=== PATIENT | female | born 1985 | race Caucasian/White ===

== ENCOUNTER 2019-04-19 11:10 | Emergency (ER) | payer MEDICAID ==
[~2019-04-19] VITALS: Ht 152.4 cm; Wt 72.7 kg
[2019-04-19 11:17] VITALS: BP 110/69; Ht 152.4 cm; Wt 72.7 kg
[2019-04-19] MEDS ORDERED: TRILEPTAL300 MG PO (11:18)
[2019-04-19] MEDS ORDERED: ZANAFLEX2 M1 PO (11:19)
[2019-04-19] MEDS ORDERED: GABAPENTIN100 MG PO (11:19)
[2019-04-19] MEDS ORDERED: LEXAPRO10 MG PO (11:19)
[2019-04-19] MEDS ORDERED: SEROQUEL50 MG PO (11:20)
[2019-04-19] MEDS ORDERED: MUPIROCIN22 GM TOPICAL (11:20)
[2019-04-19 11:48] LABS: BASOPHILS 0.6 % (0-2); HEMOGLOBIN 12.2 g/dL (12-16); LYMPHOCYTES 48.1 % (15-50); MCH 31.3 pg (26.0-34.0); MCHC 33.9 g/dL (31.0-37.0); MCV 92.3 fL (80.0-100.0); MEAN PLATELET VOLUME 9.5 fL (7.4-10.4); MONOCYTES 8.1 % (2-11); NEUTROPHILS 38.2 % (40-80); PLATELET COUNT 263 10x3/uL (130-400); RDW 12.9 % (11.5-14.5); WBC 7.3 10x3/uL (4.8-10.8)
[2019-04-19 11:52] LABS: APPEARANCE CLEAR (CLEAR); BILIRUBIN NEGATIVE (NEGATIVE); COLOR YELLOW (YELLOW); GLUCOSE NEGATIVE (NEGATIVE); KETONE NEGATIVE (NEGATIVE); NITRITE NEGATIVE (NEGATIVE); PROTEIN NEGATIVE (NEGATIVE); UROBILINOGEN NORMAL (NORMAL)
[2019-04-19 11:55] LABS: ALBUMIN 3.2 g/dL (3.4-5.0); ALKALINE PHOSPHATASE 72 U/L (46-116); ALT (SGPT) 32 U/L (10-68); BILIRUBIN - TOTAL 0.11 mg/dL (0.2-1.3); CALC OSMOLALITY 277 mosm/kg (275-300); CALCIUM 8.6 mg/dL (8.5-10.1); CARBON DIOXIDE 30.3 mmol/L (21.0-32.0); CHLORIDE - SERUM 104 mmol/L (98-107); CREATININE - SERUM 0.9 mg/dL (0.6-1.3); GLUCOSE 89 mg/dL (74-106); POTASSIUM - SERUM 4.2 mmol/L (3.5-5.1); SODIUM 140 mmol/L (136-145); UREA NITROGEN 12 mg/dL (7-18); eGFR NON AFRICAN AMERICAN 77 mL/min (90-120)
[2019-04-19 11:55] LABS: HCG URINE NEGATIVE (NEGATIVE)
[2019-04-19 12:00] LABS: UDS - AMPHET NEGATIVE QUAL (NEGATIVE); UDS - BARB NEGATIVE QUAL (NEGATIVE); UDS - BENZO NEGATIVE QUAL (NEGATIVE); UDS - COCAINE NEGATIVE QUAL (NEGATIVE); UDS - OPIATE NEGATIVE QUAL (NEGATIVE); UDS - PCP NEGATIVE QUAL (NEGATIVE); UDS - THC NEGATIVE QUAL (NEGATIVE)
--- NOTE | 2019-04-19 12:19 | NUR ---
DR. GALINDO NOTIFIED AND SITTER PRDERED. SITTER AT BEDSIDE. NOTIFIED CHARGE NURSE AND ATTENDING IN REGARDS TO ASSESSMENT FINDINGS. RESOURCES GIVEN TO PATIENT AND SAFETY PLAN INITIATED.
== END 2019-04-19 13:41 ==
LOC: D.ER 11:10
PROVIDERS: Family Medicine
DX: R45.851 Suicidal ideations (principal); F32.9 Major depressive disorder, single episode, unspecified